=== PATIENT | male | born 1955 | race Caucasian/White ===

== ENCOUNTER 2022-05-24 21:56 | Emergency (ER) | payer MEDICARE ==
[2022-05-24] MEDS ORDERED: Bacitracin 1 PK ONE (22:39)
[2022-05-24] MEDS ORDERED: Boostrix 0.5 ML (Tdap) VIAL ONE (22:39)
[2022-05-24 23:17] LABS: #Basophils 0.1 thou/uL (0.0-0.2); #Eosinphils 0.1 thou/uL (0.0-0.7); #Lymphocytes 3.1 thou/uL (1.20-3.40); #Monocytes 0.8 thou/uL (0.11-0.59); %Basophils 0.8 % (0.0-1.0); %Lymphocytes 34.4 % (21.0-51.0); %Monocytes 8.7 % (0.0-10.0); %Neutrophils 55.1 % (42.0-75.0); Hemoglobin 16.7 g/dL (14.0-18.0); Mean Corpuscular HGB CONC 34.4 g/dL (32.0-36.0); Mean Platelet Volume 7.4 fL (7.4-10.4); Platelet Count 224 thou/uL (130-400); Red Blood Cell (RBC) Count 5.22 mill/uL (4.70-6.10)
== END 2022-05-24 23:22 | disposition home or self-care (01) ==
LOC: BURERS 21:56
DX: S91.312A Laceration without foreign body, left foot, initial encounter (principal); W25.XXXA Contact with sharp glass, initial encounter
CPT/HCPCS: 12031; 36415; 85025; 90471; 90715